=== PATIENT | female | born 1955 | race Caucasian/White ===

== ENCOUNTER 2020-11-24 02:04 | Day surgery (SDC) | payer BC, SELFPAY ==
[2020-11-16 15:59] VITALS: BMI 39.5
[2020-11-24 10:58] VITALS: BP 122/73; PULSE 80; RESP 20; TEMP 35.9; O2SAT 98
--- NOTE | 2020-11-24 11:07 | WPDANESEPPF ---
Anes - Initial Pre Proc Eval Procedure: Operation Date: 11/24/20 11:30 Proposed Procedures p Screening Colonoscopy - Kyler Hammond MD Date/Time: 11/24/20 11:07 Surgeon: Kyler Hammond MD Pre Op Diagnosis: neoplasm screening Z12.11 Patient Data Age: 64 Gender: F Height: 1.63 m Weight: 103.8 kg Last Vital Signs Temp 35.9 C L 11/24/20 10:58 Pulse 80 11/24/20 10:58 Resp 20 11/24/20 10:58 BP 122/73 11/24/20 10:58 Pulse Ox 98 11/24/20 10:58 Allergies Allergy/AdvReac Type Severity Reaction Status Date / Time No Known Allergies Allergy Verified 11/24/20 10:52 Home Medications Medication Instructions Recorded Confirmed Type alprazolam 0.25 mg tablet 0.25 mg PO TID 04/19/19 11/16/20 History gabapentin 300 mg capsule 300 mg PO TID 04/19/19 11/16/20 History lisinopril 5 mg tablet 5 mg PO DAILY #90 tablet 07/01/20 11/16/20 Rx insulin degludec 200 unit/mL (3 See Rx Instructions .ROUTE 07/09/20 11/16/20 Rx mL) subcutaneous pen .COMPLEX #27 syr semaglutide 1 mg/dose (4 mg/3 mL) 1 mg SUBCUT WEEKLY #9 ml 07/12/20 11/16/20 Rx subcutaneous pen injector escitalopram oxalate 20 mg tablet 20 mg PO DAILY #90 tablet 09/06/20 11/16/20 Rx rosuvastatin 40 mg tablet See Rx Instructions .ROUTE 09/06/20 11/16/20 Rx .COMPLEX #90 tablet meloxicam 15 mg tablet 15 mg PO DAILY #30 tablet 10/21/20 11/16/20 Rx blood-glucose meter,continuous #1 ea 10/28/20 11/16/20 Rx blood-glucose sensor #3 ea 10/28/20 11/16/20 Rx blood-glucose transmitter #1 ea 10/28/20 11/16/20 Rx cholecalciferol (vitamin D3) 1,250 50,000 unit PO WEEKLY #8 cap 10/31/20 11/16/20 Rx mcg (50,000 unit) capsule empagliflozin 12.5 mg-metformin See Rx Instructions .ROUTE 11/08/20 11/16/20 History 1,000 mg tablet .COMPLEX tablet latanoprost 1 drp EACH EYE HS 11/16/20 11/16/20 History pramipexole 0.375 mg PO HS 11/16/20 11/16/20 History Patient hx anesthesia problems: none Family hx anesthesia problems: none PMFSH Past Medical History Medical History BMI 39.0-39.9,adult Morbid (severe) obesity due to excess calories Morbid (severe) obesity due to excess calories Family History Family History Mother Cerebrovascular accident Family history of diabetes mellitus in first degree relative Patient's mother is Father Patient's father is Family history of heart disease in male family member before age 55 Acute myocardial infarction Sibling Diabetes mellitus Acute myocardial infarction Hypertension Other Family history of cardiovascular disease Family history of coronary artery disease Social History Social History Smoking packs per day: 1 Smoking cigarettes per day: 20.0 Tobacco type: cigarettes Smoking end date: 04/02/94 Alcohol intake: current Alcohol use details: occasionally Substance use: never Substance use type: does not use Living arrangements: with family 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 Gender identity (if verbalized by the patient): Female Spiritual care concerns: No Anes - Eval Final PreProcedure Day of Procedure 11/24/20 11:07 Patient weight: morbidly obese Heart: regular rate and rhythm Lungs: clear to auscultation Airway: Mallampati scale class II Neurological: alert and oriented Last oral intake: >/= 8 hours ASA classification: III Emergent: no Anesthetic plan: proceed Anesthesia type and monitoring: general GIVS and standard monitoring Informed Consent: The patient's anesthetic plan and its attendant risks and benefits were discussed with the patient/family/POA. Questions were solicited and answers provided to the satisfaction of the patient/family/POA.
[2020-11-24] MEDS: LACTATED RINGERS 1,000 ML 150 ML IV CONT (11:10)
--- NOTE | 2020-11-24 11:21 | PM.HPGS ---
History of Present Illness History of Present Illness Consent: Risks, benefits, and alternatives have been discussed and questions answered. Patient agrees to proceed with procedure. Chief complaint: neoplasm screening Z12.11 Narrative: Berna Crews is a 64 year old female with colon polyp 7 years ago. Review of Systems Constitutional: Constitutional: Denies headache(s) and Denies weakness Eyes: Eyes: Denies blurry vision ENT: Reports Normal hearing present, Denies headache(s) and Denies neck pain Cardiovascular: Cardiovascular: Denies chest pain and Denies dyspnea Respiratory: Respiratory: Denies dyspnea Gastrointestinal: Gastrointestinal: Reports no additional gastrointestinal complaints Genitourinary: Genitourinary: Denies dysuria Musculoskeletal: Musculoskeletal: Denies neck pain Integumentary/Breasts: Skin/Breast: Denies dry skin Neurologic: Reports Normal hearing present, Denies headache(s) and Denies weakness Psychiatric: Psychiatric: Denies anxiety Endocrine: Endocrine: Denies change in body appearance Hematologic/Lymphatic: Hematologic/Lymphatic: Denies easy bleeding Allergic/Immunologic: Allergic/Immunologic: Denies urticaria PMF Past Medical History Medical History BMI 39.0-39.9,adult Morbid (severe) obesity due to excess calories Morbid (severe) obesity due to excess calories Family History Family History Mother Cerebrovascular accident Family history of diabetes mellitus in first degree relative Patient's mother is Father Patient's father is Family history of heart disease in male family member before age 55 Acute myocardial infarction Sibling Diabetes mellitus Acute myocardial infarction Hypertension Other Family history of cardiovascular disease Family history of coronary artery disease Social History Social History Smoking packs per day: 1 Smoking cigarettes per day: 20.0 Tobacco type: cigarettes Smoking end date: 04/02/94 Alcohol intake: current Alcohol use details: occasionally Substance use: never Substance use type: does not use Living arrangements: with family 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 Gender identity (if verbalized by the patient): Female Spiritual care concerns: No Meds Home Medications and Allergies Home Medications Medication Instructions Recorded Confirmed Type alprazolam 0.25 mg tablet 0.25 mg PO TID 04/19/19 11/16/20 History gabapentin 300 mg capsule 300 mg PO TID 04/19/19 11/16/20 History lisinopril 5 mg tablet 5 mg PO DAILY #90 tablet 07/01/20 11/16/20 Rx insulin degludec 200 unit/mL (3 See Rx Instructions .ROUTE 07/09/20 11/16/20 Rx mL) subcutaneous pen .COMPLEX #27 syr semaglutide 1 mg/dose (4 mg/3 mL) 1 mg SUBCUT WEEKLY #9 ml 07/12/20 11/16/20 Rx subcutaneous pen injector escitalopram oxalate 20 mg tablet 20 mg PO DAILY #90 tablet 09/06/20 11/16/20 Rx rosuvastatin 40 mg tablet See Rx Instructions .ROUTE 09/06/20 11/16/20 Rx .COMPLEX #90 tablet meloxicam 15 mg tablet 15 mg PO DAILY #30 tablet 10/21/20 11/16/20 Rx blood-glucose meter,continuous #1 ea 10/28/20 11/16/20 Rx blood-glucose sensor #3 ea 10/28/20 11/16/20 Rx blood-glucose transmitter #1 ea 10/28/20 11/16/20 Rx cholecalciferol (vitamin D3) 1,250 50,000 unit PO WEEKLY #8 cap 10/31/20 11/16/20 Rx mcg (50,000 unit) capsule empagliflozin 12.5 mg-metformin See Rx Instructions .ROUTE 11/08/20 11/16/20 History 1,000 mg tablet .COMPLEX tablet latanoprost 1 drp EACH EYE HS 11/16/20 11/16/20 History pramipexole 0.375 mg PO HS 11/16/20 11/16/20 History Allergies Allergy/AdvReac Type Severity Reaction Status Date / Time No Known Allergies Allergy Verified 11/24/20 10:52 Vital Signs Vital Signs - 24 hr 11/24
[2020-11-24 11:49] VITALS: BP 136/68; PULSE 85; RESP 31; O2SAT 98
[2020-11-24 11:59] VITALS: BP 108/70; PULSE 80; RESP 20; O2SAT 96
[2020-11-24 12:09] VITALS: BP 109/71; PULSE 75; RESP 18; O2SAT 96
[2020-11-24 12:12] LABS: Glucose Point of Care 79 mg/dl (65-105)
== END 2020-11-24 12:32 | disposition home or self-care (01) ==
PROVIDERS: PCP Family Medicine; Visit Provider Internal Medicine Gastroenterology
PROC: 0DJD8ZZ Inspection of Lower Intestinal Tract, Via Natural or Artificial Opening Endoscopic (ICD-10-PCS; CPT 45378; principal; 2020-11-24 11:30)
DX: Z12.11 Encounter for screening for malignant neoplasm of colon (principal); K64.8 Other hemorrhoids; K63.5 Polyp of colon; F17.210 Nicotine dependence, cigarettes, uncomplicated; Z79.4 Long term (current) use of insulin; E66.01 Morbid (severe) obesity due to excess calories; Z68.39 Body mass index [BMI] 39.0-39.9, adult
CPT/HCPCS: 45385; 82948; 88305; J2704; J7120

== ENCOUNTER 2022-05-31 14:27 | Outpatient (CLI) | payer BC, SELFPAY ==
--- NOTE | ~2022-05-31 | CT_ITS ---
EXAMINATION: CT abdomen pelvis wo/w con DATE: 05/31/2022 15:42 INDICATION: Gross hematuria TECHNIQUE: Computed tomography (CT) of the abdomen and pelvis was performed without intravenous contr ast. CT of the abdomen and pelvis was then performed with a total of 130 mL Omnipaque 350 intravenous contrast using a double-bolus technique for simultaneous opacification of the renal parenchyma and r enal collecting system. The dose-length product (DLP) was 2723.79 mGy-cm. Automated exposure control and iterative reconstruction technique were employed. COMPARISON: None FINDINGS: A calcified nodule of the left lower lobe and scattered calcifications throughout the splee n likely reflect old granulomatous disease. Changes of gastric lap band surgery are noted. The heart size is normal. The liver, pancreas, gallbladder, and adrenal glands are normal. The kidneys are unre markable. No stones are identified in the kidneys, ureters, or bladder. No hydronephrosis or hydroure ter. No suspicious renal or urothelial lesion identified. No pathologically enlarged abdominal or pel birdie lymph nodes are identified. No free intraperitoneal gas or evidence of bowel obstruction. A moder ate volume of colonic stool is present. There is mild lumbar spondylosis. A fat-containing umbilical hernia is noted. IMPRESSION: 1. No CT correlate for the patient's symptoms. Reviewed, dictated and finalized at location F. OR EXAMINER
[2022-05-31 15:27] LABS: Estimated Glomerular Filt Rate > 60
== END 2022-05-31 14:28 | disposition home or self-care (01) ==
PROVIDERS: PCP Nurse Practitioner Family; Visit Provider Nurse Practitioner
DX: R31.0 Gross hematuria (principal)
CPT/HCPCS: 74178; Q9967

== ENCOUNTER 2023-09-26 14:39 | Outpatient (CLI) | payer MEDICARE, SELFPAY ==
--- NOTE | ~2023-09-26 | XR_ITS ---
EXAM: XR hip RT min 2V DATE: 09/26/2023 14:56 HISTORY: M25.559 - Pain in unspecified hip,NO INJURY . COMPARISON: None available. FINDINGS: Decreased mineralization. No fracture or dislocation. No lytic or blastic lesion. Mild deg enerative change in the right hip joint. Mild scattered pelvic enthesopathy. No erosion or periosteal change. Soft tissues within normal limits. IMPRESSION: Osteopenia. Mild right hip osteoarthritis. Reviewed, dictated and finalized at location K.
== END 2023-09-26 14:40 | disposition home or self-care (01) ==
LOC: ANHIMG 14:42
PROVIDERS: PCP Family Medicine; Visit Provider Nurse Practitioner Adult Health
DX: M85.851 Other specified disorders of bone density and structure, right thigh (principal); M16.11 Unilateral primary osteoarthritis, right hip
CPT/HCPCS: 73502

== ENCOUNTER 2023-10-08 13:18 | Outpatient (CLI) | payer MEDICARE, SELFPAY ==
--- NOTE | ~2023-10-08 | DEXA_ITS ---
? Bone Density Report? Name:? GETACHEW HOOD Patient ID:??? [id number] Age:? 67 Sex:? Female Ethnicity:? White Date of : 1955 Indication: postmenopausal; screening for osteoporosis; hysterectomy; Referring Provider: WANDER CALLAHAN Study: Bone densitometry was performed. Exam Date: October 08, 2023 Accession number: [id number] Bone Density: Region? BMD??? T-score? Z-score?? Classification AP Spine(L1-L4)? 1.049??? 0.0?1.9? Normal Femoral Neck (Left)? 0.660?? -1.7? -0.1? Osteopenia Total Hip (Left)? 0.818?? -1.0? 0.3? Normal Femoral Neck (Right)? 0.689?? -1.4? 0.2? Osteopenia Total Hip (Right)? 0.955??? 0.1? 1.4? Normal Femoral Neck Mean? 0.674?? -1.6? 0.0? Osteopenia Total Hip Mean? 0.886?? -0.5? 0.9? Normal World Health Organization criteria for BMD impression classify patients as: Normal (T-score at or above -1.0), Osteopenia (T-score between -1.0 and -2.5), or Osteoporosis (T-score at or below -2.5). 10-year Fracture Risk(1): Major Osteoporotic Fracture? 9.0% Hip Fracture? 1.1% Reported Risk Factors: [place] (), Neck BMD=0.660, BMI=37.8 (1) FRAX? Version 3.08. Fracture probability calculated for an untreated patient. Fracture probability may be lower if the patient has received treatment. Clinical Information Provided by Patient: Has the following medical conditions: Hysterectomy Patient maximum height was 64 Menopause Age: 51 No regular weight bearing exercise Does not regularly consume dairy products Drinks caffeinated beverages Onset of menses at age 13 Number of children 1 Impression: The patient has low bone mass, based on the Left Femoral Neck T- score. Discussion: BONE DENSITY IS LOW AT ONE OR MORE SKELETAL SITES. This patient's lowest T-score is low at one or more skeletal sites.? It meets the World Health Organization's (WHO) criteria for ?low bone mass?? (T-score between -1.0 and -2.5).? The patient's 10-year risk of fracture as calculated by FRAX is less than the threshold where pharmacological therapy is recommended by the National Osteoporosis Foundation (NOF).? However, all treatment decisions require clinical judgment and consideration of individual patient factors, including patient preferences, comorbidities, previous drug use, risk factors not captured in the FRAX model (e.g., frailty, falls, vitamin D deficiency, increased bone turnover, interval significant decline in bone density) and possible under or overestimation of fracture risk by FRAX. The patient should follow a healthful lifestyle (good nutrition with adequate calcium and vitamin D, and appropriate weigh
== END 2023-10-08 13:19 | disposition home or self-care (01) ==
LOC: CHSIMG 13:21
PROVIDERS: PCP Family Medicine; Visit Provider Nurse Practitioner Adult Health
DX: Z78.0 Asymptomatic menopausal state (principal); M85.89 Other specified disorders of bone density and structure, multiple sites
CPT/HCPCS: 77080

== ENCOUNTER 2024-01-14 17:18 | Outpatient (CLI) | payer MEDICARE, SELFPAY ==
--- NOTE | ~2024-01-14 | XR_ITS ---
EXAMINATION: XR cervical spine min 6V DATE: 01/14/2024 17:39 INDICATION: Radiculopathy, cervical region. TECHNIQUE: 5 views of cervical spine including flexion and extension views were obtained. COMPARISON: None. FINDINGS: There is 7 degrees levocurvature of cervical spine. Lower cervical spine is hypomobile with flexion and extension. Vertebral body heights are normal. Intervertebral disc heights are normal. Th ere are endplate osteophytes at a few levels. There is multilevel mild facet joint osteoarthritis. IMPRESSION: 1. Mild cervical spondylosis. Reviewed, dictated and finalized at location A.
== END 2024-01-14 17:19 | disposition home or self-care (01) ==
PROVIDERS: PCP Family Medicine; Visit Provider Family Medicine
DX: M47.22 Other spondylosis with radiculopathy, cervical region (principal)
CPT/HCPCS: 72052